=== PATIENT | female | born 2000 | race Caucasian/White ===

== ENCOUNTER 2020-02-22 05:40 | Emergency (ER) | payer OTHER ==
--- NOTE | 2020-02-22 05:50 | ED Physician Documentation ---
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 Denies h/o similar pain. She also notes episodic urinary frequency with small amount of urine output when trying to urinate, episodic over past 2-3 days. Review of Systems Constitutional: denies: Fever, Chills, Sweats GI: denies: Abdominal Pain, Nausea, Vomiting : reports: Dysuria, Frequency. denies: Hematuria Musculoskeletal: reports: Back pain PD PAST MEDICAL HISTORY - Past Medical History Past Medical History: Yes : Other (h/o "kidney infection" when she was approximatey 5 years old) - Present Medications Home Medications: Ambulatory Orders Medication Instructions Recorded Confirmed Nitrofurantoin Monohyd/M-Cryst 100 mg PO BID #10 capsule 02/22/20 [Macrobid 100 mg Capsule] Phenazopyridine [Pyridium] 200 mg PO TID 2 Days tablet 02/22/20 - Allergies Allergies/Adverse Reactions: Allergies Allergy/AdvReac Type Severity Reaction Status Date / Time No Known Drug Allergies Allergy Verified 02/22/20 05:48 PD ED PE NORMAL - Vitals Vital signs reviewed: Yes - General General: Alert and oriented X 3, No acute distress, Well developed/nourished - Abdomen Abdomen: Soft, Non tender - Back Back: No CVA TTP Results - Vitals Vitals: Vital Signs - 24 hr 02/22/20 05:44 Temperature 36.6 C Heart Rate 68 Respiratory 14 Rate Blood Pressure 120/71 O2 Saturation 99 Oxygen O2 Source Room air - Labs Labs: Laboratory Tests 02/22/20 06:30 Urine Color YELLOW Urine Clarity SL. CLOUDY Urine pH 6.5 Ur Specific Abell 1.025 Urine Protein 30 H Urine Glucose (UA) NEGATIVE Urine Ketones NEGATIVE Urine Occult Blood MODERATE H Urine Nitrite NEGATIVE Urine Bilirubin NEGATIVE Urine Urobilinogen 0.2 (NORMAL) Ur Leukocyte Esterase SMALL H Urine RBC 6-10 H Urine WBC 6-10 H Ur Squamous Epith Cells RARE Squamous Urine Bacteria Few Ur Microscopic Review INDICATED Urine Culture Comments INDICATED Urine HCG, Qual NEGATIVE PD MEDICAL DECISION MAKING - ED course Complexity details: reviewed results, re-evaluated patient, considered differential, d/w patient Departure - Departure Disposition: 01 Home, Self Care Clinical Impression: Urinary tract infection Condition: Good Instructions: ED UTI Cystitis Female Prescriptions: Nitrofurantoin Monohyd/M-Cryst [Macrobid 100 mg Capsule] 100 mg PO BID #10 capsule Phenazopyridine [Pyridium] 200 mg PO TID 2 Days tablet
[2020-02-22 06:41] LABS: BILIRUBIN,URINE NEGATIVE (NEGATIVE); GLUCOSE, URINE (UA) NEGATIVE (NEGATIVE); KETONES,URINE (UA) NEGATIVE (NEGATIVE); LEUKOCYTE ESTERASE, URINE SMALL (NEGATIVE); NITRITE,URINE NEGATIVE (NEGATIVE); OCCULT BLOOD,URINE MODERATE (NEGATIVE); PH,URINE 6.5 PH (5.0-7.5); PROTEIN,URINE 30 mg/dL (NEGATIVE); UROBILINOGEN,URINE 0.2 (NORMAL) E.U./dL (NORMAL)
[2020-02-22 06:43] LABS: CLARITY,URINE SL. CLOUDY (CLEAR); HCG UR QUAL NEGATIVE
[2020-02-22 06:50] LABS: BACTERIA,URINE Few /HPF (None Seen); SQUAMOUS EPITHELIAL CELL,UR RARE Squamous (<= Few)
[2020-02-22] MEDS ORDERED: PHENAZOPYRIDINE 100 MG TABLET PO STA (07:19)
[2020-02-22] MEDS ORDERED: NITROFURANTOIN MACRO 100 MG CAPSULE PO STA (07:19)
[2020-02-22 07:51] VITALS: BP 113/67
== END 2020-02-22 07:50 | disposition home or self-care (01) ==
LOC: ED 05:40
DX: N39.0 Urinary tract infection, site not specified (principal)
CPT/HCPCS: 81001; 81025; 87077; 87086; 99283; A9270; 81003

== ENCOUNTER 2024-11-30 09:05 | Inpatient (IN) ==
[2024-11-30 09:57] LABS: RUPTURE OF MEMBRANES PLUS POSITIVE (NEGATIVE)
--- NOTE | 2024-11-30 10:40 | PROVIDER PROGRESS NOTE ---
Procedures Service Date of procedure: 11/30/24 Plan Plan: 24 yo @ 40+0 weeks gestation presented to L&D independently after concern for ROM at 0740 this morning. GBS negative. No regular contractions. NST reactive. FHT baseline 135, moderate variability, + accelerations, no significa nt decelerations. Irregular contractions, soft uterine baseline tone. Fluid clear. ROM+ resulted positive. Discussed options for admission as well as active management. Also offered for patient to be discharged to home for up to 12 hours given GBS negative if she'd like. Will base admission on patient preference. SVE 4 outer os, inner os not well assessed very posterior. Likely unchanged from clinic assessment several days ago with inner os 2cm
[2024-11-30] MEDS ORDERED: OXYTOCIN 10 UNIT/ML VIAL IM PRN (11:39)
[2024-11-30] MEDS ORDERED: fentaNYL 100 MCG/2 ML VIAL IVP PRN ×2 (11:39→19:50)
[2024-11-30] MEDS ORDERED: hydrALAZINE INJ 20 MG/ML VIAL IVP PRN (11:39)
[2024-11-30] MEDS ORDERED: miSOPROStoL 200 MCG TABLET BC PRN (11:39)
[2024-11-30] MEDS ORDERED: CARBOPROST TROMETHAMINE 250 MCG/ML VIAL IM PRN (11:39)
[2024-11-30] MEDS ORDERED: TRANEXAMIC ACID IN NACL 1,000 MG/100 ML BAG IV PRN (11:39)
[2024-11-30] MEDS ORDERED: OXYTOCIN/SODIUM CHLORIDE 500 ML IV PRN ×2 (11:39→23:28)
[2024-11-30] MEDS ORDERED: miSOPROStoL 200 MCG TABLET PR PRN (11:39)
[2024-11-30] MEDS ORDERED: SODIUM CHLORIDE FLUSH 0.9% 10 ML SYRINGE IVP PRN (11:39)
[2024-11-30] MEDS ORDERED: METHYLERGONOVINE 0.2 MG/ML VIAL IM PRN (11:39)
[2024-11-30] MEDS ORDERED: LABETALOL 20 MG/4 ML SYRINGE IVP PRN ×3 (11:39)
[2024-11-30] MEDS ORDERED: TERBUTALINE 1 MG/ML VIAL SUBQ PRN (11:39)
[2024-11-30] MEDS ORDERED: LACTATED RINGERS 1,000 ML IV PRN (11:39)
[2024-11-30] MEDS ORDERED: NIFEdipine 10 MG CAPSULE PO PRN (11:39)
[2024-11-30] MEDS ORDERED: lidocaine 1% 20 ML MDV ID PRN (11:39)
--- NOTE | 2024-11-30 11:50 | HISTORY & PHYSICAL EXAMINATION ---
Admit History Smoking Status: Former smoker Other Maternal History Other Maternal History: HPI: This 24 yo @ 40+0 weeks by LMP and confirmed by 10.5 week ultrasound. She had been having mild contractions the last few days but nothng regular. This morning at about 0740, she felt a gush of fluid. ROM+ positive and found to be grossly ruptured (clear fluid). GBS negative. Upon arrival her cervix was unchanged from clinic, 2cm/vtx/posterior. She had been given an option to go home and allow her body to progress to labor, she has opted for admission and active management once the unit can safely accommodate. Reviewed that risks of labor include but are not limited to section, prolonged labor, vacuum extraction, episotomy, hemorrhage, and additional risks exist re: prolonged second stage related to extraction. Reviewed back up OBGYN is available for consultations, emergency interventions and transfer of care if indicted. She has been a patient of [facility] for the duration of her which has remained uncomplicated with the exception of for anxiety related to her 's absence through and . ROS: No Headache, visual changes or right upper quadrant abdominal pain. Denies significant N/V. Denies urinary urgency or dysuria. All other symptoms reviewed and were negative except per HPI. In the event of an emergency, accepts the administration of blood products. Medical Hx: situational anxiety Surgical Hx: None Social Hx: Monogamous with male partner. Denies current use of alcohol or tobacco, marijuana or other recreational drugs. Reports that she is safe in current relationship. Family Hx: Denies family history of congenital anomalies, Cystic Fibrosis or chromosomal abnormalities LMP: 02/24/2024 JAYNE by LMP: 11/30/2024 US: 05/04/2024 @ 10.0wks c/w LMP dating JAYNE 11/30/2024 Final JAYNE: 11/30/2024 Senthil, son Reymundo G1: SAB G2: SAB G3: 03/03/2023 (Mchenry), , 10 minute second stage, 1st degree laceration with repair, PPH - misoprostol only, 8#13oz G4: Current Allergies: NKDA RX: Iron, PNV, Hydroxyzine for anxiety and sleep (PRN), sertraline ordered 11/18- may not start yet but considering PROBLEMS: -Anxiety: encouraged improved sleep habits and methods to improve including unisom. Consider hydroxyzine next visit. Hx of sertraline use cause her to feel "like a zombie" deploying 05/14/2024 with planned return 09/2024 Pre- Weight: 146 BMI: 25.1 Blood type: O+ Antibody Screen: Negative CBC: PLT 326/HCT 41.3/HGB 13.6 RUB: Immune Varicella: NR HBsAg: Negative HepC: NR RPR: NR HIV: NR Flu: Covid: declined PAP: 2020 WNL, denies hx abnormal - request pap collected GC/CT: negative HSV: denies in self and partner Genetic testing: NIPT -negative FAS: 09/02/2024 Placenta: anterior Cord: 3VC ARI: 15.7cm EFW: 914.5; 18%tile 50gm OGCT: 92 TDAP: 10/29/24 mls Breast Pump: 10/22/2024 RSV: NR CBC: PLT 267/HCT 38.4 /HGB 12.6 RPR: NR GBS: Negative Delivery plan: Desires epidural placement. MOD: Anticipate . PP BC: Physical exam: Normocephalic, atraumatic Abdomen gravid, soft, nontender. EFW 3800 FHR baseline 135, moderate variability, + accelerations, no decelerations Contractions irregular, soft uterine resting tone. SVE 2cm/posterior/vtx, membranes ruptured. Bilateral LE's no edema Mood is mildly anxious and tearful Assessment: 24 yo @ 40 weeks gestation by 10+3 wk U/S SROM, clear fluid FHR 135 Cat I GBS NEG [facility]: [facility] Begin oxytocin once the unit is able to accommodate Continuous monitoring/ Intermittent heart rate auscultation. Jacuzzi PRN. Nitrous oxide PRN. Epidural PRN Maternal Request. Anticipate . HPI Current : Current EDU 11/30/24 Gestation 40 Weeks and 0 Days Para 1 Vital Signs Temperature 36.8 C 11/30/24 09:28 Pulse Rate 88 11/30/24 09:28 Respiratory Rate 16 11/30/24 09:28 Blood Pressure 112/71 11/30/24 09:28 NST Procedure NST Procedure: NST Procedure Start Date 11/30/24 Start Time 09:25 Stop Time 10:30 Vibroacoustic Stimulation Used No Meds/Allgy Home Medications Ambulatory Orders Medication Instructions Recorded Confirmed ferrous gluconate 324 mg (37.5 mg 37.5 mg (0.1157 x 32 4 mg (37.5 mg 06/12/24 11/26/24 iron) tablet iron)) PO .every other day # 90 tabs hydroxyzine pamoate 25 mg capsule 25 mg PO .daily PRN anxiety and 09/23/24 11/26/24 (Vistaril) sleep 30 days #30 caps vitamin with calcium 1 tab PO QDAY #90 tabs 0 11/04/24 11/26/24 no.72-iron 27 mg-folic acid 1 mg tablet ( Vitamins Plus Low Iron) sertraline 50 mg tablet 50 mg PO QDAY #90 tabs 11/1811/26/24 Allergies Allergies Allergy/AdvReac Type Severity Reaction Status Date / Time No Known Drug Allergies Allergy Verified 11/26/24 15:30 PFSH Active Problems All Active Problems (Updated 11/30/24 @ 11:51 by KESHA Campbell) 40 weeks gestation of (Acute) Rupture of membranes with clear amniotic fluid (Acute) Constipation during (Acute) Hemorrhoid prolapse (Acute) Heart palpitations (Acute) Dizziness (Acute) Anxiety (Acute) (Acute) Encounter for supervision of normal , unspecified, first trimester (Acute) Positive test (Acute) Medical History Medical History (Updated 11/30/24 @ 11:51 by KESHA Campbell) Chest pain Family History Family History (Updated 04/22/24 @ 12:40 by Dilia Lundberg RN) Father Cancer Heart attack Mother High blood pressure Social History Social History (Updated 04/22/24 @ 12:41 by Dilia Lundberg RN) Smoking Status: Former smoker Second hand tobacco smoke exposure: No Do you dip or chew tobacco?: No Do you vape?: No Living arrangement: At home Living Condition: With spouse/s.o. 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
[2024-11-30] MEDS ORDERED: hydrOXYzine PAMOATE 25 MG CAPSULE PO PRN (11:53)
[2024-11-30] MEDS ORDERED: SODIUM CHLORIDE FLUSH 0.9% 10 ML SYRINGE IVP SCH (12:00)
[2024-11-30 13:19] LABS: BASOPHILS % (AUTO) 0.3 %; EOSINOPHILS # (AUTO) 0.1 10^3/uL (0.0-0.7); HCT - HEMATOCRIT 41.3 % (37.0-47.0); HGB - HEMOGLOBIN 13.6 g/dL (12.0-16.0); LYMPHOCYTES # (AUTO) 1.7 10^3/uL (1.5-3.5); LYMPHOCYTES % (AUTO) 15.4 %; MEAN CORPUSCULAR HEMOGLOBIN 30.4 pg (27.0-31.0); MEAN CORPUSCULAR HGB CONC 32.9 g/dL (32.0-36.0); MEAN CORPUSCULAR VOLUME 92.2 fL (81.0-99.0); MEAN PLATELET VOLUME 10.6 fL (7.9-10.8); MONOCYTES # (AUTO) 0.6 10^3/uL (0.0-1.0); MONOCYTES % (AUTO) 5.7 %; NEUTROPHILS # (AUTO) 8.6 10^3/uL (1.5-6.6); NEUTROPHILS % (AUTO) 76.6 %; PLT - PLATELET COUNT 269 10^3/uL (130-450); RED BLOOD COUNT 4.48 10^6/uL (4.20-5.40); RED CELL DISTRIBUTION WIDTH 13.8 % (12.0-15.0); WHITE BLOOD COUNT 11.2 x10^3/uL (4.8-10.8)
[2024-11-30] MEDS: OXYTOCIN/SODIUM CHLORIDE 500 ML IV SCH (14:13)
[2024-11-30] MEDS: LACTATED RINGERS 1,000 ML IV SCH (14:24)
--- OUTSIDE RECORDS SUMMARY | 2024-11-30 16:06 | EXTERNAL MEDICAL SUMMARY RPT | Continuity of Care Document ---
Author Organization [place] Address [address] [place] [id number] Phone Problems date description facility 2024-09-10 15:10 Dizziness and giddiness [facility] 2024-09-10 15:10 Encounter for superv ision of normal , unspecified, unspecified trimester [facility] 2024-09-10 15:10 Encounter for superv ision of normal , unspecified, first trimester [facility] 2024-09-11 00:03 Dizziness and giddiness [facility] 2024-09-11 00:03 Encounter for superv ision of normal , unspecified, unspecified trimester [facility] 2024-09-11 00:03 Encounter for superv ision of normal , unspecified, first trimester [facility] 2024-09-16 11:25 Other specified dise ases and conditions complicating [facility] 2024-09-23 09:06 Rash and other nonspecific skin eruption [facility] 2024-09-23 09:06 Encounter for test, r esult positive [facility] 2024-09-23 09:06 Encounter for superv ision of normal , unspecified, first trimester [facility] 2024-09-23 09:06 Encounter for other specified a ntenatal screening [facility] 2024-09-23 09:07 Anxiety disorder, unspecified [facility] 2024-09-23 09:07 Encounter for superv ision of other normal , first trimester [facility] 2024-09-23 09:08 Palpitations [facility] 2024-09-23 09:08 Dizziness and giddiness [facility] 2024-09-23 09:09 Constipation, unspecified [facility] 2024-09-23 09:09 Other hemorrhoids [facility] 2024-09-23 09:09 Diseases of the dige stive system complicating , second [facility]24-09-23 09:15 Rash and other nonspecific skin eruption [facility] 2024-10-15 14:13 Encounter for superv ision of normal , unspecified, first trimester [facility] 2024-10-29 16:27 Encounter for immunization [facility] 2024-11-03 06:56 Palpitations [facility] 2024-11-03 06:56 Dizziness and giddiness [facility] 2024-11-04 16:31 Encounter for screeni ng for Streptococcus B [facility] 2024-11-05 00:02 Encounter for screeni ng for Streptococcus B [facility] 2024-11-05 12:15 Encounter for screeni ng for Streptococcus B [facility] 2024-11-12 13:14 Encounter for screeni ng for Streptococcus B [facility] 2024-11-12 14:45 Encounter for screeni ng for Streptococcus B [facility] 2024-11-18 11:26 Encounter for screeni ng for Streptococcus B [facility] 2024-11-18 18:01 Decreased move ments, unspecified trimester, not applicable or unspecified [facility] 2024-11-30 12:06 40 weeks gestation of [facility] 2024-11-30 13:06 40 weeks gestation of [facility] Results/Labs test date facility value unit notes Result panel 1 BILIRUBIN,TOTAL 2024-09-10 16:28 [facility] 0.3 mg /dl As of December 2022 testing method has changed, this may include reference ranges. CREATININE 2024-09-10 16:28 [facility] 0.4 mg/dl As of December 2022 testing method has changed, this may include reference ranges. ALBUMIN/GLOBULIN RATIO 2024-09-10 16:28 [facility] 1.4 (missing) (missing) WHITE BLOOD COUNT 2024-09-10 16:28 [facility] 10.7 x10 3/ul (missing) CHLORIDE 2024-09-10 16:28 [facility] 104 mmol/l As of December 2022 testing method has changed, this may include reference ranges. HGB - HEMOGLOBIN 2024-09-10 16:28 [facility] 12.6 g /dl (missing) AST ASPARTATE AMINOTRANSFERASE 2024-09-10 16:28 [facility] 13 iu/l As of December 2022 testing method has changed, this may include reference ranges. RED CELL DISTRIBUTION WIDTH 2024-09-10 16:28 [facility] 13.6 % (missing) SODIUM 2024-09-10 16:28 [facility] 136 mmol/l As of December 2022 testing method has changed, this may include reference ranges. GFR - MDRD 2024-09-10 16:28 [facility] 193 (taya aden) Social History date description facility
--- NOTE | 2024-11-30 17:46 | PHARMACY PROGRESS NOTE ---
Best Possible Medication History Admit Date and Time: 11/30/24 1151 Home Medications Medication Instructions Recorded Confirmed Type hydroxyzine pamoate 25 mg capsule 25 mg PO .daily PRN anxiety and 09/23/24 11/30/24 Rx (Vistaril) sleep 30 days #30 caps sertraline 50 mg tablet 50 mg PO QDAY #90 tabs 11/1811/30/24 Rx vitamin with calcium 1 tab PO DAILY 11/30/24 11/30/24 History no.72-iron 27 mg-folic acid 1 mg tablet ( Vitamins Plus Low Iron) Processed by: Pharmacy (Medication reconciliation completed by Airbrush ArtistRegis) Medications reviewed in ED?: No Medication History completed: Yes Patient Interview: Completed Secondary Source(s): Insurance records [facility] Statement: As the person ultimately responsible for medication therapy, providers are able to order a medication from an existing home medication list in [facility] via the "Reconcile Routine" prior to Confirmation of that medication by underwriting support manager. Such practice is discouraged except when the physician, in their clinical judgment, deems that a medical need exists for a medication without regard to previous use.
[2024-11-30] MEDS ORDERED: ROPIVACAINE 0.2% 200 MG/100 ML BAG EP ONE (19:00)
[2024-11-30] MEDS ORDERED: ONDANSETRON 4 MG/2 ML VIAL IVP PRN ×2 (19:50→19:51)
[2024-11-30] MEDS ORDERED: NALOXONE 0.4 MG/ML VIAL IVP PRN ×2 (19:50→19:51)
[2024-11-30] MEDS ORDERED: HYDROmorphone 0.5 MG/0.5 ML SYRINGE IVP PRN (19:50)
[2024-11-30] MEDS ORDERED: ATROPINE ABBOJECT 1 MG/10 ML SYRINGE IVP PRN (19:50)
[2024-11-30] MEDS ORDERED: ePHEDrine 50 MG/ML VIAL IVP PRN ×2 (19:50→19:51)
[2024-11-30] MEDS ORDERED: MORPHINE 2 MG/ML CARPUJECT IVP PRN (19:50)
[2024-11-30] MEDS ORDERED: METOCLOPRAMIDE 10 MG/2 ML VIAL IVP PRN ×2 (19:50→19:51)
[2024-11-30] MEDS ORDERED: diphenhydrAMINE INJ 50 MG/ML VIAL IVP PRN (19:51)
[2024-11-30] MEDS ORDERED: NALBUPHINE 10 MG/ML AMP IVP PRN (19:51)
[2024-11-30] MEDS ORDERED: LACTATED RINGERS 500 ML IV ONE (19:51)
[2024-11-30] MEDS ORDERED: ROPIVACAINE 0.2% 200 MG/100 ML BAG EP PRN (19:51)
[2024-11-30] MEDS ORDERED: LACTATED RINGERS 1,000 ML IV SCH (20:00)
--- NOTE | 2024-11-30 20:07 | ANESTHESIA PROCEDURE NOTE ---
Pre-Anesthesia VS, & Labs Diagnosis Surgical Diagnosis:: term labor pain Procedure Procedure: epidural for Vitals Vital Signs: Temp Pulse Resp BP 36.8 C 88 16 112/71 11/30/24 12:16 11/30/24 09:28 11/30/24 09:28 11/30/24 09:28 NPO Last Fluid Intake: t/o day Is Patient ?: Yes Lab Results Current Lab Results: Laboratory Tests 11/30/24 12:55: WBC 11.2 H, RBC 4.48, Hgb 13.6, Hct 41.3, MCV 92.2, MCH 30.4, MCHC 32.9, RDW 13.8, Plt Count 269, MPV 10.6, Neut # (Auto) 8.6 H, Lymph # (Auto) 1.7, [place] # (Auto) 0.6, Eos # (Auto) 0.1, Baso # (Auto) 0.0, Absolute Nucleated RBC 0.00, Nucleated RBC % 0.0, Blood Type O POSITIVE, Antibody Screen NEGATIVE Lab results reviewed: Yes 11/30/24 12:55 Meds/Allgy Home Medications Ambulatory Orders Medication Instructions Recorded Confirmed hydroxyzine pamoate 25 mg capsule 25 mg PO .daily PRN anxiety and 09/23/24 11/30/24 (Vistaril) sleep 30 days #30 caps sertraline 50 mg tablet 50 mg PO QDAY #90 tabs 11/1811/30/24 vitamin with calcium 1 tab PO DAILY 11/30/24 11/30/24 no.72-iron 27 mg-folic acid 1 mg tablet ( Vitamins Plus Low Iron) Allergies Allergies Allergy/AdvReac Type Severity Reaction Status Date / Time No Known Drug Allergies Allergy Verified 11/26/24 15:30 PFSH Active Problems All Active Problems (Updated 11/30/24 @ 11:51 by KESHA Campbell) 40 weeks gestation of (Acute) Rupture of membranes with clear amniotic fluid (Acute) Constipation during (Acute) Hemorrhoid prolapse (Acute) Heart palpitations (Acute) Dizziness (Acute) Anxiety (Acute) (Acute) Encounter for supervision of normal , unspecified, first trimester (Acute) Positive test (Acute) Medical History Medical History (Updated 11/30/24 @ 11:51 by KESHA Campbell) Chest pain Family History Family History (Updated 04/22/24 @ 12:40 by Dilia Lundberg RN) Father Cancer Heart attack Mother High blood pressure Social History Social History (Updated 04/22/24 @ 12:41 by Dilia Lundberg RN) Smoking Status: Former smoker Second hand tobacco smoke exposure: No Do you dip or chew tobacco?: No Do you vape?: No Patient requests smoking cessation consult: No Initiate information on smoking cessation: No Living arrangement: At home Living Condition: With spouse/s.o. 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 Patient has POLST: No Anesthesia Exam (Expanded) Exam General: Alert, Oriented x3 and Cooperative Neck Mobility: Normal Mallampati classification: II Thyromental Distance: 4-6 cm Respiratory: Normal breath sounds and No respiratory distress Mental/Cognitive Status: Alert/Oriented X3 Exam Exam Vital Signs: Vital Signs x48h Temp 11/30/24 12:16 36.8 C Plan Problem List (1) Rupture of membranes with clear amniotic fluid: (2) 40 weeks gestation of : Plan Anesthesia Type: Epidural Consent for Procedure(s) Verified and Reviewed: Yes Code Status: Attempt Resuscitation ASA Classification ASA classification: 2-Mild systemic disease Is this case an emergency?: No
--- NOTE | 2024-11-30 20:14 | PROVIDER PROGRESS NOTE ---
Labor Progress Note Labor Progress Note Labor Progress Note/Additional Text: S: Feeling comfortable with epidural. She is extremely anxious and tearful about all of the things that could possibly go wrong in the labor process. She feels reassured following proper epidural placement. Encouraged her to take the pr ocess one step at a time and reassured her that would continuously explain things prior to initiating any interventions. Her mom is supportive at the bedside. O: FHR baseline 150s, moderate variability, + accels, no decels Contractions palpate moderate every 5-6 minutes with soft resting tone SVE deferred (previously 3-4/50/-2, posterior) SROM x 13 hrs A: 24 yo @ 40.0 weeks gestation by 10+3 wk U/S PROM FHR 135 Cat I GBS negative P: Maintain epidural for pain management. Continue pitocin induction of labor. Continuous monitoring. Encouraged position changes in bed on peanut ball. Anticipate .
[2024-11-30] MEDS ORDERED: HYDROCORTISONE 1% CREAM 28 GM TUBE TOP PRN (23:28)
[2024-11-30] MEDS ORDERED: WITCH HAZEL/GLYCERIN 1 PAD TOP PRN (23:28)
[2024-11-30] MEDS ORDERED: SIMETHICONE CHEW 80 MG TABLET PO PRN (23:28)
--- NOTE | 2024-11-30 23:34 | DELIVERY NOTE ---
Delivery Note Delivery Comments (Free Text/Narrative) Delivery Comments (Free Text/Narrative): Labor: This 24yo @ 40.0wks gestation by LMP presented to [facility] with vaginal leakage of clear fluid and without contractions. Cervix was 2/50/-3 and vertex. Pitocin initiated for induction of labor with a maximum infusion rate of 8mU/min. FHR demonstrated Category I pattern throughout labor. Normal labor course. Epidural placed per maternal request. She progressed to c/c/+1 at 2254 with onset of pushing at 2256. : Normal SVB of viable female on 11/30/2024 @ 2301. Nucal cord x 1 was reduced. The was placed on maternal abdomen, stimulated, dried, and placed skin to skin. 's were 9/9 at 1 and 5 min respectively. The umbilical cord was allowed to stop pulsating at which time it was doubly clamped by CNM and cut by FOB. Cord blood was obtained. 3VC. Fundal massage and gentle cord traction applied for active management of the third stage. Placenta delivered spontaneously and intact at 2309. EBL 25mL. Fourth stage: Uterine fundus firm and there is no excessive bleeding. The per ineum, vagina, and cervix were inspected and found to be intact. Skin to skin contact initiated. Both mother and baby were left in stable condition.
[2024-12-01] MEDS: ACETAMINOPHEN 500 MG TABLET PO PRN (02:22)
[2024-12-01] MEDS: IBUPROFEN 800 MG TABLET PO PRN (02:22)
[2024-12-01] MEDS: DOCUSATE SODIUM 100 MG CAPSULE PO SCH (08:20)
--- NOTE | 2024-12-01 13:43 | PROVIDER PROGRESS NOTE ---
Subjective Subjective Subjective: S: Bonding well with baby. without difficulty. Bleeding decreased and is light. Pain is well controlled with oral medications. She is urinating without difficulty. Has not yet had BM. Her mom is supportive at the bedside. O: Heart RRR w/o M/G/R, lungs CTAB, abdomen soft and nontender with fundus firm at U, perineum intact, light lochia rubra, bilateral LE's trace edema A: 24 year old -->P2 PPD#1 s/p TSVD viable female infant Formula feeding Normal recovery P: Continue routine care and medications. Evaluate for discharge home tomorrow Current Medications Current Medications Current Medications: Current Medications Generic Name Dose Route Start Last Admin Trade Name Freq PRN Reason Stop Dose Admin Acetaminophen 1,000 mg 11/30/24 23:28 12/01/24 08:20 Acetaminophen 500 Mg Tablet PO 1,000 mg Q8HR PRN Administration Mild Pain or Fever>38C(100.4F) Atropine Sulfate 0.5 mg 11/30/24 19:50 Atropine Abboject 1 Mg/10 Ml Syringe IVP 12/01/24 19:50 Q5M PRN Bradycardia Docusate Sodium 100 mg 12/01/24 09:00 12/01/24 08:20 Docusate Sodium 100 Mg Capsule PO 100 mg BID JAEL Administration Ephedrine Sulfate 10 mg 11/30/24 19:50 Ephedrine 50 Mg/Ml Vial IVP 12/01/24 19:50 Q5M PRN HYPOTENSION Fentanyl 25 - 50 mcg 11/30/24 19:50 Fentanyl 100 Mcg/2 Ml Vial IVP 12/01/24 19:50 Q5M PRN BREAKTHROUGH PAIN (2nd Choice) Hydralazine HCl 5 - 10 mg 11/30/24 11:39 Hydralazine Inj 20 Mg/Ml Vial IVP Q20M PRN SBP> or= 160 OR DBP> or= 110 Protocol Hydrocortisone 1 applic 11/30/24 23:28 Hydrocortisone 1% Cream 28 Gm Tube TOP QID PRN PERINEAL REPAIR Hydromorphone HCl 0.2 - 0.6 mg 11/30/24 19:50 Hydromorphone 0.5 Mg/0.5 Ml Syringe IVP 12/01/24 19:50 Q5M PRN PAIN (First Choice) Hydroxyzine Pamoate 25 mg 11/30/24 11:53 Hydroxyzine Pamoate 25 Mg Capsule PO HS PRN anxiety and sleep Oxytocin/Sodium Chloride 500 mls @ 2 mls/hr 11/30/24 12:00 11/30/24 16:51 Pitocin/Sodium Chloride IV 8 milliunit/min TITR JAEL 8 mls/hr Titration Protocol 2 MILLIUNIT/MIN Oxytocin/Sodium Chloride 500 mls @ 999 mls/hr 11/30/24 23:28 Pitocin/Sodium Chloride IV PRN PRN POST- HEMORR PREVENTION Protocol 999 MILLIUNIT/MIN Ibuprofen 800 mg 11/30/24 23:28 12/01/24 11:08 Ibuprofen 800 Mg Tablet PO 800 mg Q8HR PRN Administration Moderate Pain (Level 4-6) Labetalol HCl 20 - 80 mg 11/30/24 11:39 Labetalol 20 Mg/4 Ml Syringe IVP Q10M PRN SBP> or= 160 OR DBP> or= 110 Protocol Labetalol HCl 20 mg 11/30/24 11:39 Labetalol 20 Mg/4 Ml Syringe IVP .ONCE PRN SBP> or= 160 OR DBP> or= 110 Protocol Labetalol HCl 20 - 40 mg 11/30/24 11:39 Labetalol 20 Mg/4 Ml Syringe IVP Q10M PRN SBP> or= 160 OR DBP> or= 110 Protocol Metoclopramide HCl 10 mg 11/30/24 19:50 Metoclopramide 10 Mg/2 Ml Vial IVP Q6HR PRN N/V not relieved by Zofran Morphine Sulfate 2 - 4 mg 11/30/24 19:50 Morphine 2 Mg/Ml Carpuject IVP 12/01/24 19:50 Q5M PRN PAIN (3rd Choice) Naloxone HCl 0.1 mg 11/30/24 19:50 Naloxone 0.4 Mg/Ml Vial IVP 12/01/24 19:50 Q2M PRN RESP RATE <8 Nifedipine 10 - 20 mg 11/30/24 11:39 Nifedipine 10 Mg Capsule PO Q20M PRN SBP> or= 160 OR DBP> or= 110 Protocol Ondansetron HCl 4 mg 11/30/24 19:50 Ondansetron 4 Mg/2 Ml Vial IVP 12/01/24 19:50 ONCE PRN N/V (First Choice) Simethicone 80 mg 11/30/24 23:28 Simethicone Chew 80 Mg Tablet PO TID PRN Gas Sodium Chloride 10 ml 11/30/24 11:39 Sodium Chloride Flush 0.9% 10 Ml Syringe IVP PRN PRN NEEDED PER PROVIDER ORDERS Witch Melissa/Glycerin 1 pad 11/30/24 23:28 Witch Melissa/Glycerin 1 Pad TOP PRN PRN PERINEAL REPAIR Objective Vital Signs/Intake & Output Vital Signs: Vital Signs x48h Temp Pulse Resp BP Pulse Ox 12/01/24 12:28 97.5 F L 79 14 99/63 99 12/01/24 08:00 97.5 F L 79 16 103/52 L 99 Intake & Output: Intake & Output 11/28/24 11/29/24 11/30/24 12/01/24 23:59 23:59 23:59 23:59 Intake Total 853 / 853 Output Total 1150 / 1150 Balance 853 / 853 -1150 / -1150 Weight (kg) 155 lb Lab Results 11/30/24 12:55 Other Labs: Lab Results x24hrs 11/30/24 Range/Units 12:55 Blood Type O POSITIVE Antibody Screen NEGATIVE Assessment/Plan Problem List (1) Rupture of membranes with clear amniotic fluid: (2) 40 weeks gestation of :
--- NOTE | 2024-12-02 07:30 | Discharge Summary ---
Discharge Summary HPI History of Present Illness: Date of Admission: 11/30/2024 Date of Discharge: 12/02/2024 Diagnosis on admission: 24 yo @ 40 weeks gestation griffiths SROM prior to onset of active labor Diagnosis on Discharge 24 yo s/p 11/30/2024 @ 2301 apgars 9/9 intact perineum Physical exam: Normocephalic, atraumatic No increased work of breathing Normal uterine involution, FF below umbilicus scant rubra bleeding Minimal perineal discomfort. Bilateral LE's no edema Mood is good. This 24yo @ 40.0wks gestation by LMP presented to [facility] with vaginal leakage of clear fluid and without contractions. Cervix was 2/50/-3 and vertex. Pitocin initiated for induction of labor with a maximum infusion rate of 8mU/min. FHR demonstrated Category I pattern throughout labor. Normal labor course. Epidural placed per maternal request. She progressed to c/c/+1 at 2254 with onset of pushing at 2256. : Normal SVB of viable female on 11/30/2024 @ 2301. Nucal cord x 1 was reduced. The was placed on maternal abdomen, stimulated, dried, and placed skin to skin. 's were 9/9 at 1 and 5 min respectively. The umbilical cord was allowed to stop pulsating at which time it was doubly clamped by CNM and cut by FOB. Cord blood was obtained. 3VC. Fundal massage and gentle cord traction applied for active management of the third stage. Placenta delivered spontaneously and intact at 2309. EBL 25mL. weight 3440g, Shannan Fourth stage: Uterine fundus firm and there is no excessive bleeding. The perineum, vagina, and cervix were inspected and found to be intact. She has been doing well in her course. She is ambulating and tolerating a regular diet. She is urinating without difficulty and her lochia is normal. Her pain is well controlled without narcotic management. She will be discharged to home today on day X and encouraged IBU, tylenol and stool softeners PRN. She intends to follow up with [facility] in 1 week for telehealth. She has been given precautions to call if she has any new or worsening sx such as fevers, chills, abdominal pain, increasing bleeding, or foul smelling vaginal lochia. preeclamptic precautions reviewed as well. VZV: NR - vaccine ordered Rubella: Immune RH: O+ ALLERGIES Allergies Allergy/AdvReac Type Severity Reaction Status Date / Time No Known Drug Allergies Allergy Verified 11/26/24 15:30 MEDICATIONS Ambulatory Orders Medication Instructions Recorded Confirmed hydroxyzine pamoate 25 mg capsule 25 mg PO .daily PRN anxiety and 09/23/24 11/30/24 (Vistaril) sleep 30 days #30 caps sertraline 50 mg tablet 50 mg PO QDAY #90 tabs 11/1811/30/24 vitamin with calcium 1 tab PO DAILY 11/30/24 11/30/24 no.72-iron 27 mg-folic acid 1 mg tablet ( Vitamins Plus Low Iron) PHYSICAL EXAM AT DISCHARGE Vital Signs: Vital Signs x48h Temp Pulse Resp BP Pulse Ox 12/02/24 02:42 36.8 C 69 17 107/58 L 98 LABS 11/30/24 12:55 Discharge Plan Discharge Patient Disposition: Home, Self Care Prescriptions: Continued Vitamin Plus Low Iron 27 mg iron- 1 mg tablet 1 tab PO DAILY Rx Instructions: give with food (meal/snack) sertraline 50 mg tablet 50 mg PO QDAY Qty: 90 1RF hydroxyzine pamoate [Vistaril] 25 mg capsule 25 mg PO .daily PRN (Reason: anxiety and sleep) 30 Days Qty: 30 1RF Rx Instructions: Take one tablet at night to help with anxiety and sleep Print Language: Sri [place]ankan Patient Instructions: After a Vaginal
[2024-12-02 09:08] VITALS: BP 114/69; TEMP 97.2; O2SAT 99
--- NOTE | 2024-12-02 15:32 | Labor Flowsheet ---
Labor Flowsheet Datetime Report Generated by CPN: 12/02/2024 15:31 Datetime: 12/02/2024 08:32 VITAL SIGNS NBP Sys/Karely/Mean (mmHg): 114 : 69 : 79 Pulse: 76 LaborFlag: Labor Datetime: 12/02/2024 08:30 SpO2 (%): 99 Datetime: 11/30/2024 23:19 Amniotic Fluid Odor: Normal Datetime: 11/30/2024 23:13 Anesthesia Comments: epidural turned off Datetime: 11/30/2024 23:00 UTERINE ACTIVITY Monitor Mode: External Frequency (min): 2-3 Quality: Strong Duration (sec): 60 Pattern: Normal: <= 5 Contractions in 10 Minutes Resting Tone (Palpate): Relaxed ASSESSMENT A Monitor Mode: External US FHR Baseline Rate : 150 Variability: Moderate 6-25 bpm Accelerations: 15X15 Decelerations: None Oxygen Method: Room Air Datetime: 11/30/2024 22:56 STAGE 2 Pushing: Coached on Pushing Pushing Position: Pushing Left Side Pushing Progress: Descent with Pushing Datetime: 11/30/2024 22:42 Comments: rn at bedside attempting to find fht Datetime: 11/30/2024 22:37 Patient Care Comments: pt uncomfortable with peanut ball, adjusted body into L exaggerated runner Datetime: 11/30/2024 21:56 Patient Position/Activity: Left Lateral Datetime: 11/30/2024 21:51 VAGINAL EXAM Dilatation (cm): 7.0 Effacement (%): 100 Station: -1 Exam by: obergt Cervix, Consistency: Soft Position 'A': Right Occipital Anterior Vaginal Exam Comments: very stretchy cervis Datetime: 11/30/2024 21:16 Monitor Interventions for UA: [place] Adjusted Datetime: 11/30/2024 21:00 Contraction Comments: moved pt position, toco not picking up as well Datetime: 11/30/2024 20:33 Anesthesia Interventions Other: Ephedrine Datetime: 11/30/2024 19:45 Vital Sign Comments: rn at bedside talking to pt. pt feeling as though she is tingly on her face and lightheaded and nauseous. feels like she is beginning to have a panic attack. anesthesia at bedside discussing sx with her to determine cause of feeling. MATERNAL ASSESSMENT Level of Consciousness: Agitation or Confusion Nausea/Vomiting: Present Datetime: 11/30/2024 19:29 Epidural Procedure: Loading Dose; Completed Datetime: 11/30/2024 19:15 ANESTHESIA Anesthesia Plans: Epidural Epidural Positioning: Sitting Datetime: 11/30/2024 19:10 Communication Comments: Bedside report to RN Finesse Datetime: 11/30/2024 19:04 PROCEDURE TIME OUT Procedure Verify: Correct Patient Identity; Correct Side and Site are Marked; Accurate Procedure Consent Form; Agreement on Procedure to be Done; Correct Patient Position; Relevant Images and Results are Properly Labeled and Displayed; Addressed Need to Administer Antibiotics or Fluids for Irrigation; Safety Precautions Based on Patient History or Medication Use Datetime: 11/30/2024 19:00 Pitocin Checklist: At Least 1 Acceleration of 15 bpm x 15 Seconds in 30 Minutes or Adequate Variability; No More than 1 Late Deceleration Occurred in Past 30 Minutes; No More than 2 Variable Decelerations > 60 Seconds in Duration and decreasing >60 bpm in 30 minutes; No More than 5 Uterine Contractions in 10 Minutes for any 20 Minute Interval; Uterus Palpates Soft between Contractions Category: Category I Datetime: 11/30/2024 18:00 Stage of : Labor Temperature (C): 36.9 Temperature Route: Oral Datetime: 11/30/2024 17:49 Cervix, Position: Posterior Datetime: 11/30/2024 16:51 MEDICATIONS Pitocin (milliunits): Increased to @ 8 Datetime: 11/30/2024 16:45 COMMUNICATION Communication: RN Reviewed Strip Datetime: 11/30/2024 13:07 Membrane Status: Ruptured Membranes Ruptured Date/Time: 11/30/2024 07:30 Membranes Rupture Method: Spontaneous Amniotic Fluid Color: Clear Amniotic Fluid Amount: Scant Datetime: 11/30/2024 13:00 PAIN Pain Scale: 2 Pain Presence: Intermittent Pain Type: Cramping Datetime: 11/30/2024 12:55 PATIENT CARE IV/Blood Work: IV Started; Labs Drawn with IV Start
== END 2024-12-02 14:30 | disposition home or self-care (01) | DRG 807 ==
LOC: WFO 09:05 → FBP 09:07
PROVIDERS: ADMIT Nurse Practitioner; ATTEND Nurse Practitioner
DX: F41.8 Other specified anxiety disorders; O69.81X0 Labor and delivery complicated by cord around neck, without compression, not applicable or unspecified; Z3A.40 40 weeks gestation of pregnancy; O99.344 Other mental disorders complicating childbirth; Z87.891 Personal history of nicotine dependence; Z37.0 Single live birth